=== PATIENT | male | born 1985 | race Caucasian/White ===

== ENCOUNTER 2018-08-17 11:34 | Emergency (ER) | payer MEDICARE ==
--- NOTE | 2018-08-17 11:47 | ED Physician Documentation ---
Chest Pain - HISTORIAN Historian: patient - HPI Stated Complaint: chest pain Chief Complaint: Chest Pain Onset: hours (12) Timing: sudden onset Duration: other (improved from onset ) Last known Well Date: 08/17/18 Last Known Well Time: 21:00 Context: rest Severity: mild Quality: tightness Chest Pain Radiation: arms Chest Pain Signs/Symptoms: denies: nausea, vomiting, cool extremities, dizziness, dyspnea, tachypnea, tachycardia, hypotension, palpitations, weakness Worsened By: nothing Relieved By: nothing Further Comments: yes (states had mall food last night then about 10 pm he had chest pain that felt like the muscle was so tight he could not loosen the muscle. He states this lasted intensely about 1 min the ache lasted all night and this am he notes about 10 am he had a small twinge of that same pain although improved now.) - ROS CONST: none MS/LYMPH: none - PAST HX HI risk factors: no pertinent history DVT/PE Risk Factors: none TAD/AAA risk factors: none GI disease: none Lung disease: none Immunizations: UTD Allergies/Adverse Reactions: Allergies Allergy/AdvReac Type Severity Reaction Status Date / Time No Known Drug Allergies Allergy Verified 08/17/18 12:44 - SOCIAL HX Smoking History: non-smoker Alcohol Use: none Drug Use: none - FAMILY HX Family HX: none - REVIEWED ASSESSMENTS Nursing Assessment Reviewed: Yes Vitals Reviewed: Yes Progress - Progress Progress: 1315: results discussed and plan. He is agreeable DG ED Results Lab/Radiology - Radiology Radiology Impressions: PA and lateral chest Clinical history: Pain and pressure. Left arm numbness. Findings: Examination of the chest in PA and lateral views with no prior films for comparison demonstrates the lungs to be clear. Cardiovascular and m ediastinal silhouettes are within normal limits. The bony thorax is intact. Impression: 1. Negative chest. Electronically signed on Aug 17, 2018 12:52:05 PM [employer] by: Smith Best Chest Pain Physical Exam - EXAM General Appearance: no acute distress, alert EENT: eye inspection normal, no signs of dehydration Neck: nml inspection Respiratory: no resp. distress, chest non-tender, nml breath sounds CVS: reg. rate & rhythm, no murmur Abdomen: soft Skin: warm/dry, normal color Extremities: non-tender, normal range of motion, no evidence of injury, no edema Neuro: oriented X3 Discharge Clincal Impression: Chest pain Qualifiers: Chest pain type: other chest pain Qualified Code(s): R07.89 - Other chest pain Referrals: Jose Rafael Beltre MD [Primary Care Provider] - 2 Days Comments: 1. Ibuprofen or Tylenol as directed as needed for pain 2. Decrease spicy foods 3. See PCP in 2-4 day 4. Return to ER for any concerns Condition: Stable Disposition: 01 HOME, SELF-CARE Decision to Admit: NO Date of Decison to Admit: 08/17/18 Decision Time: 13:24
[2018-08-17] MEDS: ASPIRIN 81 MG CHEW TAB PO ONE (12:43)
--- NOTE | 2018-08-17 12:59 | Diagnostic Imaging Report ---
RAMILA CLEMENS [facility] [id number] [facility] [address], [place]. [address] Report Submission Date: Aug 17, 2018 12:52:05 PM MEDICAL FEE CLERK Patient Study Name: JEROMY SHELTON Date: Aug 17, 2018 12:18:51 PM MEDICAL FEE CLERK Modality Type: DX Gender: M Description: CHEST : 83 Institution: [facility] Physician: RAMILA CLEMENS PA and lateral chest Clinical history: Pain and pressure. Left arm numbness. Findings: Examination of the chest in PA and lateral views with no prior films for comparison demonstrates the lungs to be clear. Cardiovascular and mediastinal silhouettes are within normal limits. The bony thorax is intact. Impression: 1. Negative chest. Electronically signed on Aug 17, 2018 12:52:05 PM MEDICAL FEE CLERK by: Smith ESTES
[2018-08-17] MEDS: KETOROLAC TROMETHAMINE 30 MG/1ML VIAL IVP ONE (13:25)
[2018-08-17 17:13] VITALS: BP 115/74
[2018-08-18 07:05] LABS: BASOPHILS % 0.4 (0.0-1.5); EOSINOPHILS % 3.2 % (0.0-6.8); MONOCYTES % 8.8 % (0.0-11.0); eGFR (Non-African) > 60
[2018-08-18 07:06] LABS: NEUTROPHILS # 2.6 # k/uL (1.4-7.7)
== END 2018-08-17 14:20 | disposition home or self-care (01) ==
LOC: ED 11:34
DX: R07.89 Other chest pain (principal)
CPT/HCPCS: 36415; 71046; 80053; 84484; 85025; 93005; 96374; 99283; 99285; J1885; S1016